=== PATIENT | female | born 1990 | race Caucasian/White ===

== ENCOUNTER 2019-05-30 10:15 | Day surgery (SDC) | payer MEDICAID ==
[~2019-05-30 10:15] MED LIST: Lactated Ringers 1,000 ML IV SCH; Sodium Chloride 0.9% 10 ML Syringe FLUSH PRN
[2019-05-30] MEDS ORDERED: Propofol 200 MG/20 ML SDV ONE (12:19)
[2019-05-30] MEDS ORDERED: fentaNYL 100 MCG/2 ML SDV ONE (12:19)
[2019-05-30] MEDS ORDERED: Ketamine 200 MG/20 ML MDV ONE (12:19)
[2019-05-30] MEDS ORDERED: Lidocaine 1% 30 ML SDV ONE (12:24)
[2019-05-30] MEDS ORDERED: Midazolam 1 MG/ML 2 ML SDV ONE (12:30)
[2019-05-30] MEDS ORDERED: ceFAZolin 1 GM in Sodium Chloride 0.9% 100 ML IV SCH (12:30)
[2019-05-30] MEDS ORDERED: ceFAZolin 1 GM Vial ONE (12:37)
[2019-05-30] MEDS ORDERED: ceFAZolin 1 GM Vial IV ONE (12:45)
[2019-05-30] MEDS ORDERED: Acetaminophen/HYDROcodone 325-5 MG Tab PO PRN (13:09)
--- NOTE | 2019-05-30 19:29 | OR ---
PREOPERATIVE DIAGNOSIS: Right posterior auricular mass, most suspicious of a lymph node. POSTOPERATIVE DIAGNOSIS: Right posterior auricular mass, most suspicious of a lymph node. PROCEDURE PERFORMED: Excision of right posterior auricular mass, size 1 cm. COMPLICATIONS: None. SPECIMENS: Lymph node. ESTIMATED BLOOD LOSS: 5 mL. ANESTHESIA: Local with sedation. PROCEDURE IN DETAIL: This was done in the operating room. Sedation was given per Anesthesia. The area was prepped and draped. 1% lidocaine was used to anesthetize the skin and surrounding subcutaneous tissue. #15 blade was used to make a small incision over the presumed lymph node. It was enucleated and then closed with 5-0 Vicryl running subcuticular suture and Dermabond. Band-Aid was applied. We will call with pathology when available. BKD: 05/30/2019 12:48:54 MODL: 05/30/2019 19:17:55 /[id number]
== END 2019-05-30 14:00 | disposition home or self-care (01) ==
LOC: VM.SDS 10:15
PROVIDERS: ATTEND Surgery
DX: R59.0 Localized enlarged lymph nodes (principal); F31.9 Bipolar disorder, unspecified; F41.9 Anxiety disorder, unspecified; F17.200 Nicotine dependence, unspecified, uncomplicated; Z88.1 Allergy status to other antibiotic agents
CPT/HCPCS: 38510; J0690; J2001; J2250; J2704; J3010; J7120